=== PATIENT | male | born 1990 | race Caucasian/White ===

== ENCOUNTER 2024-06-05 03:29 | Emergency (ER) | payer OTHER ==
[~2024-06-05] VITALS: Ht 170.2 cm; Wt 65.3 kg
[2024-06-05] MEDS ORDERED: ONDANSETRON HCL/PF 4 MG/2 ML VIAL ONE ×2 (03:45→03:55)
[2024-06-05] MEDS: IV NS 0.9% 1,000 ML BAG IV ONE ×2 (03:45)
[2024-06-05] MEDS: ONDANSETRON HCL/PF 4 MG/2 ML VIAL IVP ONE (03:46)
[2024-06-05] MEDS ORDERED: HALOPERIDOL LACTATE INJ 5 MG/ML VIAL ONE (03:55)
[2024-06-05] MEDS: ONDANSETRON HCL/PF - ER 4 MG/2 ML VIAL IV ONE (03:56)
[2024-06-05] MEDS: HALOPERIDOL LACTATE INJ 5 MG/ML VIAL IM ONE (03:56)
[2024-06-05 03:57] LABS: SITE, VBG VBG - N/A; VBG BASE EXCESS -5.9 mmol/L (-2.0-3.0); VBG COHb 0.9 % (0.5-1.5); VBG HCO3 17.6 mmol/L (22.0-29.0); VBG MetHb 0.3 % (0.5-1.5); VBG O2Hb 83.4 % (0-79); VBG OXYGEN SATURATION 84.4 % (60.0-85.0); VBG PCO2 29.5 mmHg (38.0-54.0); VBG PH 7.393 (7.320-7.430); VBG PO2 49.3 mmHg (23.0-48.0); VBG TOTAL HEMOGLOBIN 14.8 G/dL (13.5-17.5)
[2024-06-05 04:09] LABS: BASOPHILS % (AUTO) 0.4 % (0.0-2.0); HEMATOCRIT 44 % (39-51); HEMOGLOBIN 14.8 g/dL (13.5-17.5); LYMPHOCYTES # (AUTO) 1.1 K/uL (0.8-4.8); LYMPHOCYTES % (AUTO) 9.7 % (20.0-44.0); MEAN CORPUSCULAR HEMOGLOBIN 31 PG (26.0-33.0); MEAN CORPUSCULAR HGB CONC 33 g/dl (31.0-36.0); MEAN CORPUSCULAR VOLUME 93 fL (80-96); MONOCYTES # (AUTO) 0.3 K/uL (0.1-1.30); MONOCYTES % (AUTO) 2.9 % (2.0-12.0); NEUTROPHILS # (AUTO) 9.6 K/uL (1.8-8.9); PLATELET COUNT (AUTO) 297 K/uL (150-450); RED BLOOD CELL COUNT(AUTO) 4.74 MIL/uL (4.5-6.0); RED CELL DISTRIBUTION WIDTH 13.4 % (11.5-15.0)
[2024-06-05 04:15] LABS: CARBON DIOXIDE 23 mmol/L (21-32); CHLORIDE 97 mmol/L (98-107); CREATININE 1.1 mg/dL (0.6-1.3); GLUCOSE 303 mg/dL (74-106); POTASSIUM 4.9 mmol/L (3.5-5.1); SODIUM SERUM 137 mmol/L (136-145); UREA NITROGEN, BLOOD 12 mg/dL (7-18)
[2024-06-05 04:21] LABS: ALANINE AMINOTRANSFERASE 48 U/L (12-78); ALBUMIN 5.3 g/dL (3.4-5.0); ALKALINE PHOSPHATASE 93 U/L (46-116); ASPARTATE AMINOTRANSFERASE 40 U/L (15-37); BILIRUBIN,DIRECT 0.3 mg/dL (0.0-0.2); BILIRUBIN,TOTAL 0.9 mg/dL (0.2-1.0); LIPASE 18 U/L (16-77); TOTAL PROTEIN, SERUM 8.5 g/dL (6.4-8.2)
[2024-06-05 05:15] VITALS: BP 110/66; TEMP 98.1; O2SAT 98
== END 2024-06-05 05:25 | disposition home or self-care (01) ==
LOC: ER 03:32
DX: F19.10 Other psychoactive substance abuse, uncomplicated (principal); R11.2 Nausea with vomiting, unspecified; R00.0 Tachycardia, unspecified; F12.90 Cannabis use, unspecified, uncomplicated; E10.65 Type 1 diabetes mellitus with hyperglycemia; Z79.4 Long term (current) use of insulin; Z60.2 Problems related to living alone
CPT/HCPCS: 99285; 96374; 71045; 96361; 96372; 93005; 82803; 85025; 80048; 83690; 80076; 36415; 84484; 82962; J1630; J2405 ×3; J7030 ×2